=== PATIENT | male | born 1985 | race Caucasian/White ===

== ENCOUNTER 2022-08-18 20:16 | Emergency (ER) | payer BC ==
[~2022-08-18] VITALS: Ht 172.7 cm; Wt 81.6 kg
[2022-08-18] MEDS ORDERED: KETOROLAC TROMETHAMINE 60 MG/2 ML VIAL IM ONE (21:00)
[2022-08-18] MEDS ORDERED: CYCLOBENZAPRINE HCL 10 MG TAB PO ONE (21:00)
[2022-08-18] MEDS ORDERED: CYCLOBENZAPRINE10 MG PO (21:56)
== END 2022-08-18 21:58 | disposition home or self-care (01) ==
LOC: ER 20:20
DX: M54.50 Low back pain, unspecified (principal)
CPT/HCPCS: 99283